=== PATIENT | male | born 1950 | race Caucasian/White ===

== ENCOUNTER 2017-09-12 09:50 | Emergency (ER) | payer MEDICARE ==
--- NOTE | 2017-09-12 10:20 | Emergency Department Record ---
History of Present Illness - General Chief complaint: General Stated complaint: FISHING HOOK IN CHEEK Time Seen by Provider: 09/12/17 10:16 Source: Patient Mode of Arrival: Ambulatory Limitations: No limitations - History of Present Illness Initial comments: 66 yo male presents with a fish hook stuck in his right cheek. No other injury. It has been in for 45 minutes. Tetanus is up to date per the patient. MD complaint: Foreign body Hx Tetanus Toxoid Vaccination: Yes Year of Tetanus Vaccination: 2014 Patient Tetanus UTD (within 5 yrs): Yes Consistency: Constant Improves with: None Worsens with: None Context: None - Related Data Home Medications Medication Instructions Recorded Confirmed Last Taken Atorvastatin Calcium [Lipitor] 80 mg PO DAILY 09/12/17 09/12/17 09/12/17 Losartan/Hydrochlorothiazide 1 tab PO ASDIR 09/12/17 09/12/17 09/12/17 [Losartan-Hctz 50-12.5 mg Tab] Metoprolol Succinate [Toprol Xl] 50 mg PO DAILY 09/12/17 09/12/17 09/12/17 Allergies Allergy/AdvReac Type Severity Reaction Status Date / Time Penicillins Allergy PT UNSURE Verified 09/12/17 09:59 OF REACTION Travel Screening - Travel/Exposure Within Last 30 Days Have you traveled within the last 30 days?: No - Travel/Exposure Within Last Year Have you traveled outside the [place] in the last year?: No - Additonal Travel Details Have you been exposed to anyone with a communicable illness?: No - Travel Symptoms Symptom Screening: None Review of Systems Constitutional: Denies: Chills, Fever Eyes: Denies: Eye discharge, Eye pain, Vision change ENT: Denies: Congestion, Throat pain Respiratory: Denies: Cough Gastrointestinal: Denies: Nausea, Vomiting Musculoskeletal: Denies: Arthralgia, Joint swelling, Myalgia Skin: Denies: Bruising, Change in color, Rash Neurological: Denies: Headache Psychiatric: Denies: Anxiety Hematological/Lymphatic: Denies: Easy bleeding, Easy bruising Past Medical History - SOCIAL HISTORY Smoking Status: Former smoker Alcohol Use: None Drug Use: None - RESPIRATORY Hx Respiratory Disorders: Yes Hx Asthma: Yes (well controlled, no inhalers used) - CARDIOVASCULAR Hx Cardio Disorders: Yes Hx Coronary Stent: Yes (pt had stent in Apr, no prob since) - NEURO Hx Neuro Disorders: No Comment:: difficulty reading and writing - GI Hx GI Disorders: Yes Hx Reflux: Yes Comment:: rectal bleeding (hemorrhoids) - Hx Genitourinary Disorders: No Hx Prostate Problems: Yes (?BPH frequency) - ENDOCRINE Hx Endocrine Disorders: No - MUSCULOSKELETAL Hx Musculoskeletal Disorders: Yes Hx Arthritis: Yes (neck) - PSYCH Hx Psych Problems: No - HEMATOLOGY/ONCOLOGY Hx Hematology/Oncology Disorders: No Family Medical History Any Significant Family History?: Yes Hx Cancer: Brother/Sister *Cancer Comment: vinod, stomach Hx Diabetes: Mother Physical Exam - General General Appearance: Alert, Oriented x3, Cooperative, No acute distress Limitations: No limitations - Head Head exam: negative: Atraumatic, Normal inspection Image of Face/Head: 1 - fish hook - Eye Eye exam: Normal appearance, PERRL. negative: Conjunctival injection, Scleral icterus - ENT ENT exam: Normal exam Ear exam: Normal external inspection Nasal Exam: Normal inspection Mouth exam: Normal external inspection - Neck Neck exam: Normal inspection - Neurological Neurological exam: Alert, Oriented X3 - Psychiatric Psychiatric exam: Normal affect, Normal mood - Skin Skin exam: Dry, Intact, Normal color, Warm Course Vital Signs 09/12/17 10:03 Temperature 97.8 F Pulse Rate 65 Respiratory 18 Rate Blood Pressure 143/76 Pulse Ox 98 - Reevaluation(s) Reevaluation #1: Foreign body Removal Betadine Prep Lidocaine 1% 1ml local 11 blade 2mm incision Hook backed out without difficulty 09/12/17 10:18 Disposition Disposition: Discharge Clinical Impression: Fish hook injury of cheek Disposition: Home, Self-Care Condition: (1) Good Instructions: Soft Tissue Foreign Body (ED) Additional Instructions: Clean the area 2 times daily Return if you have any concerns Forms: Patient Portal Access Time of Disposition: 10:19 Quality - Quality Measures Quality Measures: Blunt Head Trauma (>2yr) - Marlon Coma Scale Eye Response: (4) Open spontaneously Motor Response: (6) Obeys commands Verbal Response: (5) Oriented [place] Total: 15 - Blunt Head Trauma - Adult Quality Measure: Measure #415: Utilization of CT for Minor Blunt Head Trauma ICD10 Codes Entered: Yes Was CT ordered: No Does Patient Have Any of the Following: No Exclusions Marlon Score: [address] for Minor Blunt Head Trauma: Not Eligible For Measure Additional Inclusion Criteria: More than 24hrs (OR) GCS not 15 (OR) CT not ordered. Not Eligible Reason: CT Not Ordered - Blood Pressure Screening Does Patient Have Any of the Following: Active Dx of HTN Blood Pressure Classification: Hypertensive Reading Systolic Measurement: 143 Diastolic Measurement: 76 Screening for High Blood Pressure: Patient Exclusion, Hx of HTN [[id number]]
== END 2017-09-12 10:33 | disposition home or self-care (01) ==
LOC: ER 09:50
DX: S00.85XA Superficial foreign body of other part of head, initial encounter (principal); W45.8XXA Other foreign body or object entering through skin, initial encounter; W20.8XXA Other cause of strike by thrown, projected or falling object, initial encounter; Z87.891 Personal history of nicotine dependence
CPT/HCPCS: 10120; 99283